=== PATIENT | female | born 1960 | race Caucasian/White ===

== ENCOUNTER 2021-11-16 06:15 | Outpatient (CLI) | payer BC, SELFPAY | END 2021-11-16 06:16 | disposition home or self-care (01) | LOC: OP CLINIC 06:17 | PROVIDERS: PCP Family Medicine; Visit Provider Internal Medicine | DX: Z12.11 Encounter for screening for malignant neoplasm of colon (principal) | CPT/HCPCS: 45378; J2250; J3010 ==

== ENCOUNTER 2023-01-27 07:55 | Outpatient (CLI) | payer BC, SELFPAY | END 2023-01-27 07:56 | disposition home or self-care (01) | LOC: NFLDREF 16:58 | PROVIDERS: PCP Family Medicine; Referring Provider Family Medicine; Visit Provider Family Medicine | DX: Z00.00 Encounter for general adult medical examination without abnormal findings (principal); E55.9 Vitamin D deficiency, unspecified; M85.80 Other specified disorders of bone density and structure, unspecified site; E78.5 Hyperlipidemia, unspecified; E66.9 Obesity, unspecified | CPT/HCPCS: 80053; 80061; 82306 ==

== ENCOUNTER 2023-02-06 07:03 | Outpatient (CLI) | payer BC, SELFPAY ==
--- NOTE | 2023-02-06 07:15 | CRLHL7_ITS ---
For Patients: As a result of the Century Cures Act, medical imaging exams and procedure reports are released immediately into your electronic medical record. You may view this report before your referring provider. If you have questions, please contact your health care provider. INDICATION: gallstones seen on breast MRI COMPARISON: Not available TECHNIQUE: Real time lewis scale imaging and color Doppler analysis was performed of the right upper quadrant. FINDINGS: The patient`s liver is of normal size and has uniform echogenicity. There is a normal appearance of the hepatic IVC and proximal abdominal aorta. There is no evidence of ascites. The gallbladder is of normal size and there are echogenic stones within the gallbladder lumen measuring up to 2 cm. The gallbladder wall measures 2.9 mm in thickness. The common bile duct is of normal size and measures 5.1 mm in diameter at the level of the atif hepatis. The pancreas appears normal. The right kidney is absent. IMPRESSION: Cholelithiasis. Dictated by Tim Fiore MD @ 02/06/2023 9:02:35 AM (Electronically Signed)
== END 2023-02-06 07:04 | disposition home or self-care (01) ==
PROVIDERS: PCP Family Medicine; Visit Provider Family Medicine
DX: K80.20 Calculus of gallbladder without cholecystitis without obstruction (principal)
CPT/HCPCS: 76705

== ENCOUNTER 2024-09-28 07:50 | Outpatient (CLI) | payer BC, SELFPAY | END 2024-09-28 07:51 | disposition home or self-care (01) | LOC: NFLDREF 09-29 03:42 | PROVIDERS: PCP Family Medicine; Referring Provider Family Medicine; Visit Provider Internal Medicine | DX: M81.0 Age-related osteoporosis without current pathological fracture (principal); E78.5 Hyperlipidemia, unspecified; M85.89 Other specified disorders of bone density and structure, multiple sites; E55.9 Vitamin D deficiency, unspecified; E66.9 Obesity, unspecified; R73.01 Impaired fasting glucose; K80.20 Calculus of gallbladder without cholecystitis without obstruction | CPT/HCPCS: 80053; 80061; 82306 ==